=== PATIENT | female | born 1970 | race African-American/Black ===

== ENCOUNTER 2020-11-30 00:10 | Emergency (ER) | payer MEDICAID ==
[~2020-11-30] VITALS: Ht 177.8 cm; Wt 91.0 kg
[2020-11-30] MEDS ORDERED: VISCOUS LIDOCAINE 2% 15 ML UDC PO STA (00:30)
[2020-11-30] MEDS ORDERED: ONDANSETRON HCL 4MG/2ML INJ IV STA (00:30)
[2020-11-30] MEDS ORDERED: MAGNESIUM/ALUMINUM HYDROXIDE/SIMETHICONE 30ML UDC PO STA (00:30)
[2020-11-30 00:49] LABS: BASOPHILS % 1.1 % (0.0-2.0); EOSINOPHILS % 1.5 % (0.0-5.0); HEMATOCRIT. 44.1 % (36.0-48.0); LYMPHOCYTES % 46.5 % (20.0-50.0); MEAN CORPUSCULAR HEMOGLOBIN 31.1 pg (28.0-32.0); MEAN CORPUSCULAR VOLUME 91.6 fL (81.0-99.0); NEUTROPHILS % 44.9 % (40.0-76.0); PLATELET 231 x1000/uL (130-400); RED BLOOD CELL COUNT 4.82 mill/uL (4.2-5.4); RED CELL DISTRIBUTION WIDTH 13.4 % (11.6-14.6)
[2020-11-30 00:55] LABS: CHLORIDE 110 mEq/L (98-107)
[2020-11-30 02:29] VITALS: BP 124/85
[2020-12-01] MEDS ORDERED: FAMO40TA70 MT (03:12)
[2020-12-01] MEDS ORDERED: IBUP-2029 MT (03:12)
== END 2020-11-30 02:29 | disposition home or self-care (01) ==
LOC: ER 00:10
DX: K21.9 Gastro-esophageal reflux disease without esophagitis (principal); R07.89 Other chest pain; I11.0 Hypertensive heart disease with heart failure; I50.9 Heart failure, unspecified; Z88.8 Allergy status to other drugs, medicaments and biological substances
CPT/HCPCS: 36415; 71045; 80053; 83690; 85025; 93005; 96374; 99285; J2405

== ENCOUNTER 2020-12-01 02:13 | Emergency (ER) | payer MEDICAID ==
[~2020-12-01] VITALS: Ht 172.7 cm; Wt 113.0 kg
[2020-12-01] MEDS ORDERED: IBUP-2029 MT (03:12)
[2020-12-01] MEDS ORDERED: FAMO40TA70 MT (03:12)
[2020-12-01 03:20] VITALS: BP 136/67
== END 2020-12-01 03:43 | disposition home or self-care (01) ==
LOC: ER 02:13
DX: R10.13 Epigastric pain (principal); R07.89 Other chest pain; I11.0 Hypertensive heart disease with heart failure; I50.9 Heart failure, unspecified; Z88.8 Allergy status to other drugs, medicaments and biological substances
CPT/HCPCS: 99283

== ENCOUNTER 2020-12-21 20:58 | Emergency (ER) | payer MEDICAID, OTHER ==
[~2020-12-21] VITALS: Ht 177.8 cm; Wt 103.0 kg
[~2020-12-21 20:58] MED LIST: FAMO40TA70 MT; IBUP-2029 MT
[2020-12-21] MEDS ORDERED: VISCOUS LIDOCAINE 2% 15 ML UDC PO STA (22:05)
[2020-12-21] MEDS ORDERED: ONDANSETRON 4MG ODT PO ONE (22:15)
[2020-12-21 23:10] LABS: BASOPHILS % 0.5 % (0.0-2.0); HEMATOCRIT. 39.5 % (36.0-48.0); HEMOGLOBIN. 13.6 g/dL (12.0-16.0); LYMPHOCYTES % 45.5 % (20.0-50.0); MEAN CORPUSCULAR HEMOGLOBIN 31.5 pg (28.0-32.0); MEAN CORPUSCULAR VOLUME 91.7 fL (81.0-99.0); MEAN PLATELET VOLUME 11.5 fl (7.4-10.4); MONOCYTES % 4.2 % (2.0-8.0); NEUTROPHILS % 48.8 % (40.0-76.0); PLATELET 199 x1000/uL (130-400); RED BLOOD CELL COUNT 4.31 mill/uL (4.2-5.4); RED CELL DISTRIBUTION WIDTH 12.9 % (11.6-14.6)
[2020-12-21 23:14] LABS: CHLORIDE 113 mEq/L (98-107)
[2020-12-21 23:18] LABS: PROTHROMBIN TIME 10.7 sec (9.6-11.0)
[2020-12-22] MEDS ORDERED: IBUP-2028 MT (01:29)
[2020-12-22 01:38] VITALS: BP 131/82
== END 2020-12-22 01:39 | disposition home or self-care (01) ==
LOC: ER 20:58
DX: K80.20 Calculus of gallbladder without cholecystitis without obstruction (principal); E11.9 Type 2 diabetes mellitus without complications; I10 Essential (primary) hypertension; Z88.8 Allergy status to other drugs, medicaments and biological substances; Z79.899 Other long term (current) drug therapy
CPT/HCPCS: 36415; 76705; 80053; 81025; 83690; 85025; 85610; 93005; 99285; Q0162

== ENCOUNTER 2020-12-25 19:50 | Emergency (ER) | payer OTHER ==
[~2020-12-25] VITALS: Ht 177.8 cm; Wt 118.0 kg
[~2020-12-25 19:50] MED LIST changes: +IBUP-2028 MT
[2020-12-25 20:10] VITALS: BP 103/75
[2020-12-25] MEDS ORDERED: ACET-2708 MT (20:21)
[2020-12-25] MEDS ORDERED: ONDA4TAB11 PO (20:21)
[2020-12-25] MEDS ORDERED: ONDANSETRON 4MG ODT PO ONE (20:30)
[2020-12-25] MEDS ORDERED: ACETAMINOPHEN 500MG TABLET PO ONE (20:30)
== END 2020-12-25 20:59 | disposition home or self-care (01) ==
LOC: ER 19:50
DX: R10.9 Unspecified abdominal pain (principal); Z88.8 Allergy status to other drugs, medicaments and biological substances
CPT/HCPCS: 81025; 93005; 99283; Q0162

== ENCOUNTER 2020-12-30 20:11 | Emergency (ER) | payer OTHER ==
[~2020-12-30] VITALS: Ht 175.3 cm; Wt 90.0 kg
[~2020-12-30 20:11] MED LIST changes: +ACET-2708 MT; +ONDA4TAB11 PO
[2020-12-30] MEDS ORDERED: VISCOUS LIDOCAINE 2% 15 ML UDC PO STA (20:55)
[2020-12-30] MEDS ORDERED: DICYCLOMINE 10 MG/5 ML ORAL SYR PO STA (20:55)
[2020-12-30] MEDS ORDERED: ONDANSETRON 4MG ODT PO STA (20:55)
[2020-12-30] MEDS ORDERED: MAGNESIUM/ALUMINUM HYDROXIDE/SIMETHICONE 30ML UDC PO STA (20:55)
[2020-12-30] MEDS ORDERED: KETOROLAC 60MG/2ML VIAL IM ONE (21:45)
[2020-12-30 22:06] VITALS: BP 166/94
== END 2020-12-30 22:10 | disposition home or self-care (01) ==
LOC: ER 20:11
DX: K80.80 Other cholelithiasis without obstruction (principal); J45.909 Unspecified asthma, uncomplicated; E11.9 Type 2 diabetes mellitus without complications; I10 Essential (primary) hypertension; F99 Mental disorder, not otherwise specified; E66.9 Obesity, unspecified; Z68.29 Body mass index [BMI] 29.0-29.9, adult; Z88.8 Allergy status to other drugs, medicaments and biological substances
CPT/HCPCS: 93005; 96372; 99284; J1885; Q0162